=== PATIENT | female | born 2000 | race Caucasian/White ===

== ENCOUNTER 2022-07-30 13:21 | Inpatient (IN) ==
[2022-07-30 14:22] LABS: ABS Eosinophils 0.1 10^3/ul (0-0.6); ABS Lymphocytes 1.7 10^3/ul (1.0-4.8); ABS Monocytes 0.7 10^3/ul (0-0.8); ABS Neutrophils 9.9 10^3/ul (1.5-7.7); Eosinophil % 0.4 %; Hematocrit 37 % (35-47); Hemoglobin 12.7 g/dL (12.0-16.0); Lymphocyte % 13.4 %; Mean Corpuscular HGB Conc 34 g/dL (31-36); Mean Corpuscular Hemoglobin 27 pg (27-31); Mean Corpuscular Volume 80 fL (80-97); Platelet Count 399 10^3/uL (150-450); Red Blood Count 4.65 10^6 /uL (3.70-4.87); Red Cell Distribution Width 14 % (10-15); White Blood Count 12.4 10^3/uL (3.5-10.8)
[2022-07-30 14:44] LABS: Urine Benzodiazepine Screen None Detected (None Detect); Urine Cannabinoids Screen None Detected (None Detect); Urine Opiates Screen None Detected (None Detect)
[2022-07-30 15:07] LABS: ALT 7 U/L (7-52); AST 13 U/L (13-39); Acetaminophen < 15 mcg/mL; Albumin/Globulin Ratio 1.7 (1-3); Alcohol, S < 13 mg/dL (<13); Alkaline Phosphatase 60 U/L (35-149); Anion Gap 13 mmol/L (2-11); Blood Urea Nitrogen 10 mg/dL (6-24); CO2 Carbon Dioxide 22 mmol/L (22-32); Calcium 9.8 mg/dL (8.6-10.3); Chloride 102 mmol/L (101-111); Glucose 89 mg/dL (70-100); Potassium 3.9 mmol/L (3.5-5.0); Salicylate < 2.50 mg/dL (<30); Sodium 137 mmol/L (135-145); eGFR CKD-EPI 105.8 (>60)
[2022-07-30 15:13] LABS: HCG Pregnancy < 0.60 mIU/mL
[2022-07-30] MEDS ORDERED: Al Hydrox/Mg Hydrox/Simet LIQ 30 ML UDC PO PRN (21:13)
[2022-07-30] MEDS ORDERED: diphenhydraMINE PO* 50 MG Q8H PRN AGITATION or INSOMNIA PO (21:14)
[2022-07-30] MEDS ORDERED: chlorproMAZINE TAB 50 MG Q6H PRN AGITATION PO (21:14)
[2022-07-31 08:17] LABS: HDL Cholesterol 46.4 mg/dL
[2022-07-31] MEDS: Vitamin THERAPEUTIC TAB PO SCH (09:01)
[2022-08-01] MEDS: Vitamin THERAPEUTIC TAB PO SCH (09:40)
[2022-08-01] MEDS: ESTRADIOL PO SCH (16:12)
[2022-08-01] MEDS: LEVONORGESTREL PO SCH (16:12)
[2022-08-02] MEDS: Vitamin THERAPEUTIC TAB PO SCH (08:09)
[2022-08-02 08:50] VITALS: BP 107/63
[2022-08-02] MEDS: LEVONORGESTREL PO SCH (13:30)
[2022-08-02] MEDS: ESTRADIOL PO SCH (13:30)
== END 2022-08-02 13:52 | disposition home or self-care (01) | DRG 751 ==
LOC: ED 13:21 → EDHOLD 18:42 → BSU 20:02
PROVIDERS: ADMIT Psychiatry & Neurology Addiction Psychiatry; ATTEND Psychiatry & Neurology Addiction Psychiatry